=== PATIENT | female | born 2000 ===

== ENCOUNTER → 2025-09-28 | Outpatient (CLI) | payer OTHER ==
[2025-09-28 15:03] LABS: Ferritin, Serum 4.0 ng/mL (8-252); Total Iron Binding Capacity 448.0 ug/dL (250-450)
== END ==
LOC: LAB 13:02 → LAB SHORT 13:02
PROVIDERS: Internal Medicine Hematology & Oncology
DX: D50.0 Iron deficiency anemia secondary to blood loss (chronic) (principal)
CPT/HCPCS: 82728; 83540; 83550